=== PATIENT | female | born 1975 | race Hispanic/Latino ===

== ENCOUNTER 2019-11-08 18:11 | Emergency (ER) | payer SELFPAY ==
[2019-11-08 18:24] VITALS: BP 127/74; PULSE 72; RESP 16; TEMP 37.3; O2SAT 100
--- NOTE | 2019-11-08 18:35 | ED.SKABFB ---
HPI - Skin/Abscess/Foreign Bdy General Chief complaint: Skin/Abscess/Foreign Body Stated complaint: poison nga Time Seen by Provider: 11/08/19 18:28 Source: patient Mode of arrival: ambulatory Limitations: no limitations History of Present Illness HPI narrative: Patient presents today complaining of a rash to the bilateral arms, chest, face, upper legs. Rash began 6 days ago and has continued to spread. It is severely pruritic with some mild pain at times. She has tried hydrocortisone, peroxide, Benadryl, calamine lotion without relief. MD complaint: rash Related Data Allergies Allergy/AdvReac Type Severity Reaction Status Date / Time No Known Allergies Allergy Verified 11/08/19 18:14 Review of Systems Review of Systems: Narrative: CONSTITUTIONAL: Denies body aches, fever, chills, or sweats. EYES: Denies visual changes, redness, or discharge. ENT: Denies rhinorrhea, congestion, sore throat, or otalgia. CARDIOVASCULAR: Denies chest pain, palpitations, or edema. RESPIRATORY: Denies cough or dyspnea. GASTROINTESTINAL: Denies abdominal pain, nausea, vomiting, or diarrhea. GENITOURINARY: Denies dysuria or hematuria. SKIN: Denies wounds.+ Rash MUSCULOSKELETAL: Denies back pain, joint pain, or myalgia. NEUROLOGIC: Denies headache, numbness, tingling, or weakness. PSYCH: Denies depression or anxiety. PMFSH Comments At time of signature, I have reviewed and agree with nursing past medical, surgical, social and family history unless otherwise noted. Please see nursing chart for further information. There is no relevant family history pertinent to the presenting complaint Exam Narrative: Exam Narrative: GENERAL: Well-appearing, well-nourished, and in no acute distress. HEAD: Normocephalic, atraumatic. EYES: EOMI. No redness or drainage. Conjunctivae normal. ENT: Mucous membranes pink and moist. NECK: Normal AROM. CHEST: No respiratory distress. EXTREMITIES: Normal range of motion. No edema. SKIN: Warm, dry. Capillary refill normal. Normal skin turgor. Diffuse clustered vesicular rash with erythematous base to bilateral hands, arms, legs, chest and to a lesser degree on the left cheek. In the webbing between right 3rd and 4th fingers, there is some skin maceration and slight crusting, erythema consistent with mild infection. Distal sensation intact, capillary refill normal. NEURO: No focal deficits. Alert and oriented x3. Gait steady. PSYCH: Normal affect. No signs of depression or anxiety. Course Vital Signs Vital signs: Vital Signs Temperature 99.2 F 11/08/19 18:24 Pulse Rate 72 11/08/19 18:24 Respiratory Rate 16 11/08/19 18:24 Blood Pressure 127/74 11/08/19 18:24 Pulse Oximetry 100 11/08/19 18:24 Temperature 99.2 F 11/08/19 18:24 Pulse Rate 72 11/08/19 18:24 Respiratory Rate 16 11/08/19 18:24 Blood Pressure 127/74 11/08/19 18:24 Pulse Oximetry 100 11/08/19 18:24 Reviewed. Pt has been instructed to follow up with her PCP regarding her elevated blood pressure today. MDM - Skin/Abscess/Foreign Bdy Differential Diagnosis Differential diagnosis: Likely abscess of skin or subcutaneous tissue, cellulitis, eczema, impetigo and contact dermatitis Critical Care Time Critical Care Time Critical Care Time: No Discharge Plan Discharge Clinical Impression: Contact dermatitis due to poison nga Cellulitis Qualifiers: Site of cellulitis: extremity Site of cellulitis of extremity: upper extremity Laterality: right Qualified Code(s): L03.113 - Cellulitis of right upper limb Patient Disposition: Home, Self-Care Condition: Stable Instructions: Cellulitis (DC), Poison Nga (ED) Additional Instructions: Ashley la prednisona seg?n las indicaciones para campbell erupci?n. Empiece a kira prednisona por la ma?radha, ya que puede mantenerlo despierto por la noche. Aplique la crema antibi?mauro en campbell mano derecha para la infecci?n castro. Puede seguir usando loci?n de hidrocortisona o calam
== END 2019-11-08 18:44 | disposition home or self-care (01) ==
PROVIDERS: Emergency Provider Nurse Practitioner
DX: L25.5 Unspecified contact dermatitis due to plants, except food (principal); L03.113 Cellulitis of right upper limb
CPT/HCPCS: 99203; G0463